=== PATIENT | female | born 1980 | race Caucasian/White ===

== ENCOUNTER 2019-08-06 19:20 | Emergency (ER) | payer MEDICAID ==
[~2019-08-06] VITALS: Ht 157.5 cm; Wt 68.0 kg
[2019-08-06 20:03] VITALS: BP 120/81
== END 2019-08-07 01:29 | disposition left against medical advice (07) ==
LOC: ER 19:31
DX: R10.9 Unspecified abdominal pain (principal); Z53.21 Procedure and treatment not carried out due to patient leaving prior to being seen by health care provider